=== PATIENT | male | born 1950 | race African-American/Black ===

== ENCOUNTER 2023-02-18 11:20 | Inpatient (IN) ==
[2023-02-18 11:44] VITALS: BMI 28.1
--- NOTE | 2023-02-18 11:58 | DR.GENAD ---
HPI Time Seen Time Seen by Provider: 02/18/23 11:56 PCP Primary Care Physician: KAREN Complaint/Symptoms Chief Complaint:: Patient states he has been dealing with a inguinal hernia for 1 year with hx of previous surgery in 1993. Patient states this AM at 0430 the pain became very severe. He states he vomited at 0700 hrs. He received Toradol 60 mg IM @ 1015 COVID-19 Coronavirus risk:travel/contact w/high risk person: No Has patient experienced Coronavirus symptoms: No Source History Provided: Patient Mode of Arrival Mode of Arrival: Wheelchair Timing Onset of Chief Complaint: 02/18/23 PMH PMH Past Medical History: Yes Past Medical History: Dyslipidemia, GERD and Hypertension Past Surgical History: Yes Past Surgical History Comment: hernia repair Family History History of Family Medical Conditions: No Social History Does patient currently use any type of tobacco product: No Have you used tobacco products in the last 12 months: No Type of Tobacco Use: None Does any household member use tobacco: No Alcohol Use: None Do you use any recreational Drugs:: No Lives With: Other Lives Where: Alf Travel Risk Coronavirus risk:travel/contact w/high risk person: No Has patient experienced Coronavirus symptoms: No Infectious screening In the last 2 months have you had wt loss of >10#?: NO Have you had fever, night sweats or hemotysis?: No Have you traveled outside the country in the last 6 months?: No Isolation: Standard PE Vital Signs Vitals: Vital Signs Temperature 98 F Pulse Rate 83 Respiratory Rate 20 Blood Pressure 174/85 O2 Sat by Pulse Oximetry 98 Opioid Opioid Risk Tool Age (Samy box if 16-45): No History of Preadolescent Sexual Abuse: No Total: 0 Total Score Risk Category: Low Risk Copyright: Faraz LAMB predicting aberrant behaviors Discharge Plan Discharge Plan Patient Disposition: 01 HOME, SELF-CARE Condition: Stable Health Concerns: Post Hospitalization: new medications and changes needed to prevent readmission or further decline. Pt educated and given instructions on all concerns. Plan of Treatment: Continue with present treatment and follow up plan. Pt is to keep follow up appointment as instructed and take medications as ordered. Follow ups/Referrals Follow ups/Referrals: NFD,None [Primary Care Provider] - 3 days Instructions Stand Alone Forms: Post Hospital Follow Up Care
[2023-02-18] MEDS ORDERED: NS 1,000 ML IV 1,000 ML ONE (12:13)
[2023-02-18] MEDS ORDERED: DILAUDID INJ ONE ×2 (12:19→12:41)
--- NOTE | 2023-02-18 12:21 | EKG ---
Test Reason : PRE OP Blood Pressure : */* mmHG Vent. Rate : 79 BPM Atrial Rate : 79 BPM P-R Int : 160 ms QRS Dur : 84 ms QT Int : 356 ms P-R-T Axes : 65 4 28 degrees QTc Int : 408 ms Normal sinus rhythm Nonspecific T wave abnormality Abnormal ECG No previous ECGs available Confirmed by John Sher ([id number]) on 02/20/2023 7:38:54 AM Referred By: Confirmed By: John Sher
[2023-02-18] MEDS ORDERED: DILAUDID INJ IM ONE (12:26)
[2023-02-18 12:27] LABS: BILIRUBIN,URINE NEGATIVE (NEGATIVE); BLOOD/HEMOGLOBIN,URINE NEGATIVE (NEGATIVE); GLUCOSE, URINE NEGATIVE (NEGATIVE); KETONES,URINE NEGATIVE (NEGATIVE); LEUKOCYTE ESTERASE ,URINE NEGATIVE (NEGATIVE); NITRITES,URINE NEGATIVE (NEGATIVE); PROTEIN,URINE NEGATIVE (NEGATIVE); UROBILINOGEN,URINE NORMAL (NORMAL)
[2023-02-18 12:29] LABS: APPEARANCE,URINE CLEAR (CLEAR); COLOR,URINE STRAW (YELLOW)
[2023-02-18] MEDS ORDERED: DILAUDID INJ IVP ONE ×2 (12:32→12:42)
[2023-02-18 12:34] LABS: BASOPHILS % (AUTO) 0.3 % (0.2-1.0); EOSINOPHILS % (AUTO) 0.1 % (0.9-2.9); HEMATOCRIT 42.4 % (42.0-54.0); HEMOGLOBIN 14.2 g/dL (13.5-18.0); LYMPHOCYTES # (AUTO) 0.8 X10^3/uL (1.3-2.9); LYMPHOCYTES % (AUTO) 7.3 % (21.0-51.0); MEAN CORPUSCULAR HEMOGLOBIN 28.7 pg (27.0-34.0); MEAN CORPUSCULAR HGB CONC 33.4 g/dL (33.0-35.0); MEAN CORPUSCULAR VOLUME 85.8 fL (80.0-100.0); MEAN PLATELET VOLUME 8.4 fL (7.4-11.0); MONOCYTES # (AUTO) 0.3 x10^3/uL (0.3-0.8); MONOCYTES % (AUTO) 2.5 % (0.0-13.0); NEUTROPHILS # (AUTO) 10.4 x10^3/uL (2.2-4.8); NEUTROPHILS % (AUTO) 89.8 % (42.0-75.0); PLATELET COUNT 310 X10^3/uL (150.0-450.0); RED BLOOD COUNT 4.94 X10^6/uL (4.7-6.0); RED CELL DISTRIBUTION WIDTH 14.6 % (11.6-16.5); WHITE BLOOD COUNT 11.6 X10^3/uL (3.6-10.0)
--- NOTE | 2023-02-18 12:37 | RAD ---
EXAM:CHEST, 1 VIEWHISTORY:Patient states he has been dealing with a inguinal hernia for 1 year with hx of previous surgery in 1993. Patient states this AM at 0430 the pain became very severe. He states he vomited at 0700 hrs.; Pre OPCOMPARISON:None.FINDINGS:SUPPORT DEVICES: None.HEART/MEDIASTINUM: No significant abnormality.LUNGS: No significant pulmonary abnormality. No significant pleural effusion. No pneumothorax.ADDITIONAL FINDINGS: None.IMPRESSION:No significant abnormality.THIS IS AN ELECTRONICALLY VERIFIED FINAL [id number]/2023 12:33 PM - Electronically signed by Ran Hi MD
[2023-02-18 12:44] LABS: ALANINE AMINOTRANSFERASE 27 Units/L (12-78); ALBUMIN 3.9 g/dL (3.4-5.0); ALKALINE PHOSPHATASE 103 Units/L (46-116); ASPARTATE AMINO TRANSFERASE 20 Units/L (15-37); BLOOD UREA NITROGEN 10 mg/dL (7-18); CALCIUM 8.8 mg/dL (8.5-10.1); CARBON DIOXIDE 29.1 mmol/L (21-32); CHLORIDE 101 mmol/L (98-107); COR NA(FOR HYPERGLY) 136 mmol/L (136-145); CREATININE 0.98 mg/dL (0.70-1.30); GLUCOSE 111 mg/dL (65-99); POTASSIUM 4.6 mmol/L (3.5-5.1); SODIUM 136 mmol/L (136-145); eGFR NON BLACK RACES > 60 (>60)
[2023-02-18] MEDS ORDERED: NS 1,000 ML IV 1,000 ML IV SCH (13:00)
[2023-02-18] MEDS ORDERED: APRESOLINE INJ 20 MG VIAL ONE (13:03)
[2023-02-18] MEDS ORDERED: APRESOLINE INJ 20 MG VIAL IVP ONE (13:07)
[2023-02-18] MEDS ORDERED: ANCEF VIAL 1 GRAM ONE (13:38)
[2023-02-18] MEDS ORDERED: NS 100 ML IV 100 ML ONE (13:39)
[2023-02-18] MEDS ORDERED: LR 1,000 ML IV 1,000 ML IV ONE (13:39)
--- NOTE | 2023-02-18 13:48 | DR.H&P ---
H&P History & Physical for Day of: H&P Date: 02/18/23 Chief Complaint Chief Complaint: Incarcerated left inguinal hernia Allergies Allergies Allergy/AdvReac Type Severity Reaction Status Date / Time Penicillins Allergy Mild Verified 02/18/23 13:34 History of Present Illness History of Present Illness: 72 yo male s/p laparoscopic left inguinal hernia repair 1993 with mesh. Now with recurrence over the last several years . It has been reduceable before today. Past Medical History Past Medical History: Dyslipidemia, GERD and Hypertension Past Surgical History Surgical History: Other (laparoscopic left inguinal hernia repair 1993 ) Social History Does patient currently use any type of tobacco product: No Have you used tobacco products in the last 12 months: No Type of Tobacco Use: None Does any household member use tobacco: No Alcohol Use: None Medications Home Medications: amlodipine, anti cholesterol medication Labs 02/18/23 12:12 02/18/23 12:12 Labs: Laboratory WBC 11.6 X10^3/uL (3.6-10.0) H 02/18/23 12:12 RBC 4.94 X10^6/uL (4.7-6.0) 02/18/23 12:12 Hgb 14.2 g/dL (13.5-18.0) 02/18/23 12:12 Hct 42.4 % (42.0-54.0) 02/18/23 12:12 MCV 85.8 fL (80.0-100.0) 02/18/23 12:12 MCH 28.7 pg (27.0-34.0) 02/18/23 12:12 MCHC 33.4 g/dL (33.0-35.0) 02/18/23 12:12 RDW 14.6 % (11.6-16.5) 02/18/23 12:12 Plt Count 310 X10^3/uL (150.0-450.0) 02/18/23 12:12 MPV 8.4 fL (7.4-11.0) 02/18/23 12:12 Neut % (Auto) 89.8 % (42.0-75.0) H 02/18/23 12:12 Lymph % (Auto) 7.3 % (21.0-51.0) L 02/18/23 12:12 [place] % (Auto) 2.5 % (0.0-13.0) 02/18/23 12:12 Eos % (Auto) 0.1 % (0.9-2.9) L 02/18/23 12:12 Baso % (Auto) 0.3 % (0.2-1.0) 02/18/23 12:12 Neut # (Auto) 10.4 x10^3/uL (2.2-4.8) H 02/18/23 12:12 Lymph # (Auto) 0.8 X10^3/uL (1.3-2.9) L 02/18/23 12:12 [place] # (Auto) 0.3 x10^3/uL (0.3-0.8) 02/18/23 12:12 Eos # (Auto) 0.0 x10^3/uL (0.0-0.2) 02/18/23 12:12 Baso # (Auto) 0.0 X10^3/uL (0.0-0.1) 02/18/23 12:12 Absolute Nucleated RBC 0.0 /100WBC 02/18/23 12:12 Sodium 136 mmol/L (136-145) 02/18/23 12:12 Corrected Sodium 136 mmol/L (136-145) 02/18/23 12:12 Potassium 4.6 mmol/L (3.5-5.1) 02/18/23 12:12 Chloride 101 mmol/L (98-107) 02/18/23 12:12 Carbon Dioxide 29.1 mmol/L (21-32) 02/18/23 12:12 BUN 10 mg/dL (7-18) 02/18/23 12:12 Creatinine 0.98 mg/dL (0.70-1.30) 02/18/23 12:12 Est GFR (MDRD) Af Amer > 60 (>60) 02/18/23 12:12 Est GFR (MDRD) Non-Af > 60 (>60) 02/18/23 12:12 Glucose 111 mg/dL (65-99) H 02/18/23 12:12 Calcium 8.8 mg/dL (8.5-10.1) 02/18/23 12:12 Corrected Calcium TNP 02/18/23 12:12 Total Bilirubin 0.40 mg/dL (0.2-1.0) 02/18/23 12:12 AST 20 Units/L (15-37) 02/18/23 12:12 ALT 27 Units/L (12-78) 02/18/23 12:12 Alkaline Phosphatase 103 Units/L (46-116) 02/18/23 12:12 Total Protein 8.0 g/dL (6.4-8.2) 02/18/23 12:12 Albumin 3.9 g/dL (3.4-5.0) 02/18/23 12:12 Globulin 4.1 g/dL (2.5-4.5) 02/18/23 12:12 Albumin/Globulin Ratio 1.0 Ratio (1.1-2.1) L 02/18/23 12:12 Specimen Type Clean catch urine 02/18/23 12:12 Urine Color Straw (YELLOW) 02/18/23 12:12 Urine Appearance Clear (CLEAR) 02/18/23 12:12 Urine pH 8.0 (5.0 - 8.0) 02/18/23 12:12 Ur Specific [place] 1.015 (1.000-1.030) 02/18/23 12:12 Urine Protein Negative (NEGATIVE) 02/18/23 12:12 Urine Glucose (UA) Negative (NEGATIVE) 02/18/23 12:12 Urine Ketones Negative (NEGATIVE) 02/18/23 12:12 Urine Blood Negative (NEGATIVE) 02/18/23 12:12 Urine Nitrite Negative (NEGATIVE) 02/18/23 12:12 Urine Bilirubin Negative (NEGATIVE) 02/18/23 12:12 Urine Urobilinogen Normal (NORMAL) 02/18/23 12:12 Ur Leukocyte Esterase Negative (NEGATIVE) 02/18/23 12:12 Review of Systems Constitutional: See HPI Eyes: No Symptoms Reported ENT: No Symptoms Reported Respiratory: No Symptoms Reported Cardiovascular: No Symptoms Reported Gastrointestinal: No Symptoms Reported Genitourinary: See HPI Musculoskeletal: No Symptoms Reported Skin: No Symptoms Reported Neurological: No Symptoms Reported Physical Exam Vital Signs: Vital Signs Temperature 98 F Pulse Rate 83 Respiratory Rate 20 Respiratory Rate 20 Respiratory Rate 20 Blood Pressure 174/85 O2 Sat by Pulse Oximetry 98 Oriented: Normal, Time, Person and Place Eyes: Normal Ear: Normal Nose: Normal Throat: Normal Respiratory: Clear Throughout Cardiovascular: Normal : Normal Auscultation: Bowel Sounds: Normal Palpation: Other (Large incarcerated inguinal hernia left groin) Tenderness: Normal Skin: Normal Musculoskeletal: Normal Psychiatric: Normal Mood Description: Calm Affect: Normal Speech Pattern: Clear Assessment/Plan (1) Incarcerated left inguinal hernia: Status: Acute Plan: open repair left inguinal hernia today. Risks and benefits discussed including bleeding, infection and possible loss of left testicle. he understands and agrees to proceed. Review H&P Reviewed: Yes Patient was examined?: Yes
[2023-02-18] MEDS ORDERED: SUPRANE ONE (14:30)
[2023-02-18] MEDS ORDERED: VERSED ONE (14:31)
[2023-02-18] MEDS ORDERED: FENTANYL VIAL INJ 250 mcg ONE (14:31)
[2023-02-18] MEDS ORDERED: BRIDION ONE (14:33)
[2023-02-18] MEDS ORDERED: DIPRIVAN VIAL 20 ML ONE (14:33)
[2023-02-18] MEDS ORDERED: QUELICIN (OR ANECTINE) ONE (14:58)
[2023-02-18] MEDS ORDERED: ZOFRAN INJ 4 MG VIAL ONE (14:58)
[2023-02-18] MEDS ORDERED: ZEMURON 100 MG VIAL ONE (14:58)
[2023-02-18] MEDS ORDERED: MARCAINE/EPINEPHRINE ONE (15:26)
--- NOTE | 2023-02-18 15:48 | OR.IMMED ---
IMMEDIATE POST-OP NOTE Immediate Post-Op Note Pre-Op Diagnosis: incarcerated left inguinal hernia Post-Op Diagnosis: strangulated left inguinal hernia with ischemic sigmoid colon. It pinked up after release of the mesenteric compromise Procedure: repair left strangulated inguinal hernia Description of Procedure: see dictation Surgeon/Table Runner: Clyde Findings: as above Estimated Blood Loss: < 50 cc Complications: none Progress Notes: to floor, clear liquid diet, careful observation
[2023-02-18] MEDS ORDERED: REGLAN INJ 10 MG VIAL IVP PRN (16:00)
[2023-02-18] MEDS ORDERED: DILAUDID INJ IVP PRN (16:00)
[2023-02-18] MEDS ORDERED: BENADRYL INJ 50 MG VIAL IVP PRN (16:00)
[2023-02-18] MEDS ORDERED: BARHEMSYS INJ IVP PRN (16:00)
[2023-02-18] MEDS ORDERED: ZOFRAN INJ 4 MG VIAL IVP PRN (16:00)
[2023-02-18] MEDS: LR 1,000 ML IV 1,000 ML IV SCH (19:20)
[2023-02-18] MEDS: PERCOCET TAB 5/325 MG PO PRN ×2 (19:28→23:50)
[2023-02-19] MEDS: LR 1,000 ML IV 1,000 ML IV SCH ×4 (02:47→20:19)
[2023-02-19] MEDS: PERCOCET TAB 5/325 MG PO PRN ×5 (04:47→21:12)
[2023-02-19 05:28] LABS: BASOPHILS # (AUTO) 0.1 X10^3/uL (0.0-0.1); BASOPHILS % (AUTO) 0.5 % (0.2-1.0); EOSINOPHILS % (AUTO) 0.1 % (0.9-2.9); HEMATOCRIT 35.8 % (42.0-54.0); LYMPHOCYTES # (AUTO) 1.6 X10^3/uL (1.3-2.9); LYMPHOCYTES % (AUTO) 13.4 % (21.0-51.0); MEAN CORPUSCULAR HEMOGLOBIN 28.9 pg (27.0-34.0); MEAN CORPUSCULAR HGB CONC 33.8 g/dL (33.0-35.0); MEAN CORPUSCULAR VOLUME 85.5 fL (80.0-100.0); MEAN PLATELET VOLUME 9.4 fL (7.4-11.0); MONOCYTES # (AUTO) 1.7 x10^3/uL (0.3-0.8); MONOCYTES % (AUTO) 14.2 % (0.0-13.0); NEUTROPHILS # (AUTO) 8.6 x10^3/uL (2.2-4.8); NEUTROPHILS % (AUTO) 71.8 % (42.0-75.0); PLATELET COUNT 233 X10^3/uL (150.0-450.0); RED BLOOD COUNT 4.19 X10^6/uL (4.7-6.0); RED CELL DISTRIBUTION WIDTH 14.1 % (11.6-16.5)
[2023-02-19 05:37] LABS: HEMOGLOBIN 12.1 g/dL (13.5-18.0)
[2023-02-19] MEDS: NORVASC TAB 10 MG PO SCH (09:09)
[2023-02-19] MEDS: LOVENOX INJ 40 MG SYR SC SCH (09:13)
--- NOTE | 2023-02-19 16:37 | NOTE.SOAP ---
Soap Note Note for Day of Date of Exam: 02/19/23 Subjective Data Subjective Data: POD # 1 after repair of strangulated left inguinal hernia with ischemic compromise of sigmoid colon. Doing well. Passing flatus . Advanced fro clear liquid diet to regular diet. Objective Data Temperature: 98 F Pulse Rate: 105 Respiratory Rate: 20 Blood Pressure: 144/98 O2 Sat by Pulse Oximetry: 98 Objective Data: No significant edema of the left groin above what is expected. Bloody drainage for this area in the LIBORIO drain . A total of 180 cc out LIBORIO drain. Hgb 12.1, WBC= 12.0, Abdomen mildly distended Assessment Assessment: S/P repair of strangulated left inguinal hernia Plan Plan: Continue to observe abdomen. Continue diet. Labs in AM.Heparin lock IVFS
[2023-02-20] MEDS: PERCOCET TAB 5/325 MG PO PRN ×6 (00:55→22:25)
[2023-02-20 05:23] LABS: BASOPHILS # (AUTO) 0.1 X10^3/uL (0.0-0.1); BASOPHILS % (AUTO) 1.1 % (0.2-1.0); EOSINOPHILS # (AUTO) 0.1 x10^3/uL (0.0-0.2); EOSINOPHILS % (AUTO) 1.3 % (0.9-2.9); HEMATOCRIT 32.2 % (42.0-54.0); LYMPHOCYTES # (AUTO) 1.4 X10^3/uL (1.3-2.9); LYMPHOCYTES % (AUTO) 13.2 % (21.0-51.0); MEAN CORPUSCULAR HEMOGLOBIN 29.3 pg (27.0-34.0); MEAN CORPUSCULAR HGB CONC 34.2 g/dL (33.0-35.0); MEAN CORPUSCULAR VOLUME 85.8 fL (80.0-100.0); MEAN PLATELET VOLUME 8.6 fL (7.4-11.0); MONOCYTES # (AUTO) 1.9 x10^3/uL (0.3-0.8); MONOCYTES % (AUTO) 17.8 % (0.0-13.0); NEUTROPHILS # (AUTO) 6.9 x10^3/uL (2.2-4.8); NEUTROPHILS % (AUTO) 66.6 % (42.0-75.0); PLATELET COUNT 238 X10^3/uL (150.0-450.0); RED BLOOD COUNT 3.75 X10^6/uL (4.7-6.0); RED CELL DISTRIBUTION WIDTH 13.8 % (11.6-16.5); WHITE BLOOD COUNT 10.4 X10^3/uL (3.6-10.0)
[2023-02-20] MEDS: NORVASC TAB 10 MG PO SCH (08:38)
[2023-02-20] MEDS: LOVENOX INJ 40 MG SYR SC SCH (08:39)
[2023-02-20] MEDS ORDERED: CITROMA PO ONE (11:29)
--- NOTE | 2023-02-20 19:03 | DR.OPNOTE ---
OP NOTE Pre-Op Diagnosis: Incarcerated left inguinal hernia Post-Op Diagnosis: Stangulated left inguinal hernia( sigmoid colon ischemic and did pink up) Procedure Date Date Of Procedure: 02/18/23 Procedure: PROCEDURE: OPEN REPAIR STRANULATED LEFT INGUINAL HERNIA ,HIGH LIGATION OF SAC AND MESH REPAIR. NARRATIVE: The patient was taken to the operative suite and placed in the supine position. The entire abdomen and entire scrotum were prepped and draped in sterile fashion. Time out for the procedure obtained. Standard left inguinal incision was made with a 15 knife blade extending through the subcutaneous tissue with electrocautery. The external oblique fascia opened along it's orientation dividing the external inguinal ring. Hernia had been attempted to be reduced preoperatively but was unsuccessful. The hernia sac was opened with a 15 knife blade and sigmoid colon removed from the sac. We watched the sigmoid colon for several minutes and it pinked up. The colon was then placed back through the indirect hernia defect into the abdominal cavity. The very large sac was the dissected free from the cord structures. The sack was excised using electrocautery. This was a chronic thick-walled sac. The base of the sac was then closed with two running layers of 2-0 silk suture. The testicle placed back in the scrotum. At this point Prolene mesh was placed in the inguinal canal above the sac repair. The mesh was sutured to the pubic tubercle , medially to the transversalis fascia and laterally to the shelving edge of the inguinal ligament . The mesh was divided posteriorly creating two tails which were placed around the cord structures and sutured to itself. The tails of the mesh placed underneath the external oblique fascia. The area was irrigated and suctioned free. A flat number 10 Rowdy Hahn drain was placed over the mesh and brought out through a 5 mm incision in the left scrotum to drain this area. The external oblique fascia was closed with running 3-0 Vicryl suture. The subcutaneous tissue closed with running 3-0 Vicryl suture and the skin closed with running 4-0 Vicryl subcuticular suture. Steri-strips applied to close the skin and the patient tolerated this very well. He was extubated and taken to PACU in good condition. Type of Anesthesia: General Anesthetic w/ETT Findings: as above Type of Fluids Used:: Lactated Ringers EBL: < 100 cc Complications:: one Needle/Sponge Count:: correct Disposition/Condition: Pt. tolerated procedure without difficulty. Extubated in the OR and taken to PACU in stable condition.
--- NOTE | 2023-02-20 19:55 | NOTE.SOAP ---
Soap Note Note for Day of Date of Exam: 02/20/23 Subjective Data Subjective Data: POD # 2 after repair of stangulated left inguinal hernia repair . Doing well. Taking diet. Passing flatus . Objective Data Temperature: 99.7 F Pulse Rate: 98 Respiratory Rate: 20 Blood Pressure: 126/65 O2 Sat by Pulse Oximetry: 93 Objective Data: Hgb=11.0. Scotum edematous but is markedly less swollen. No evidence recurrent hernia. Drain with 85 cc last two shifts. Less bloody. Assessment Assessment: POD # 2 after repair of strangulated left inguinal hernia with ischemic sigmoid colon. Overall improving. Plan Plan: Heparin lock IVFs . Magnesium citrate. Probably dischrarge tomorrow
[2023-02-20] MEDS ORDERED: HIBICLENS WASH ONE (20:51)
[2023-02-21] MEDS: PERCOCET TAB 5/325 MG PO PRN ×3 (02:17→10:19)
[2023-02-21 06:24] VITALS: RESP 18
[2023-02-21 06:59] LABS: BASOPHILS # (AUTO) 0.1 X10^3/uL (0.0-0.1); BASOPHILS % (AUTO) 0.6 % (0.2-1.0); EOSINOPHILS # (AUTO) 0.2 x10^3/uL (0.0-0.2); EOSINOPHILS % (AUTO) 1.4 % (0.9-2.9); HEMATOCRIT 29.8 % (42.0-54.0); HEMOGLOBIN 10.2 g/dL (13.5-18.0); LYMPHOCYTES # (AUTO) 1.3 X10^3/uL (1.3-2.9); LYMPHOCYTES % (AUTO) 11.7 % (21.0-51.0); MEAN CORPUSCULAR HEMOGLOBIN 29.8 pg (27.0-34.0); MEAN CORPUSCULAR HGB CONC 34.3 g/dL (33.0-35.0); MEAN CORPUSCULAR VOLUME 86.7 fL (80.0-100.0); MEAN PLATELET VOLUME 8.9 fL (7.4-11.0); MONOCYTES # (AUTO) 1.2 x10^3/uL (0.3-0.8); MONOCYTES % (AUTO) 10.9 % (0.0-13.0); NEUTROPHILS # (AUTO) 8.2 x10^3/uL (2.2-4.8); NEUTROPHILS % (AUTO) 75.4 % (42.0-75.0); PLATELET COUNT 219 X10^3/uL (150.0-450.0); RED BLOOD COUNT 3.44 X10^6/uL (4.7-6.0); RED CELL DISTRIBUTION WIDTH 14.2 % (11.6-16.5); WHITE BLOOD COUNT 10.9 X10^3/uL (3.6-10.0)
[2023-02-21 07:11] LABS: ALANINE AMINOTRANSFERASE 16 Units/L (12-78); ALBUMIN 2.6 g/dL (3.4-5.0); ALKALINE PHOSPHATASE 69 Units/L (46-116); ASPARTATE AMINO TRANSFERASE 18 Units/L (15-37); BLOOD UREA NITROGEN 18 mg/dL (7-18); CALCIUM 8.2 mg/dL (8.5-10.1); CARBON DIOXIDE 28.7 mmol/L (21-32); CHLORIDE 104 mmol/L (98-107); COR CA(FOR HYPOALB) 9.3 mg/dL (8.5-10.1); COR NA(FOR HYPERGLY) 140 mmol/L (136-145); GLUCOSE 152 mg/dL (65-99); POTASSIUM 3.8 mmol/L (3.5-5.1); SODIUM 139 mmol/L (136-145); TOTAL PROTEIN 6.5 g/dL (6.4-8.2); eGFR NON BLACK RACES > 60 (>60)
[2023-02-21] MEDS: LOVENOX INJ 40 MG SYR SC SCH (08:46)
[2023-02-21] MEDS: NORVASC TAB 10 MG PO SCH (08:47)
[2023-02-21 09:09] VITALS: BP 145/70; PULSE 88; TEMP 97.9; O2SAT 95
--- NOTE | 2023-02-21 11:17 | W.DIS.FURT ---
Summary of Discharge Discharge Summary of Date Date of Exam: 02/21/23 Admission Date Date of Admission: 02/18/23 Admission Diagnosis Hospital Course: This 72 year old male is currently incarcerated in the [place] [facility]. He has had a history of left inguinal hernia repair performed in the past via laparoscopy.. He has a several year history of significant swelling in the left groin and left scrotum. He presented to the emergency room where he was diagnosed with an incarcerated left inguinal hernia. It could not be reduced by the ER physician or myself . He was taken to the operating suite later that day where he underwent repair of this hernia. He proved to have strangulated sigmoid colon in the hernia which was observed and did well. It was placed back in the abdominal cavity. Mesh was placed . Post procedure he has done well. He is now tolerating a diet and has had a bowel movement. He has a drain in the scrotum with significant edema and swelling as expected but no evidence of recurrence. He will be discharged to the [facility] at the [facility]. He will be on his usual medications plus Percocet 5 mg tablets one every six hours PRN pain. He will follow up with me in one week, at which time we will plan to remove the drain. Vital Signs: Vital Signs (72 hours) 02/19/23 16:34 02/20/23 19:51 02/18/23 11:22 Temperature 98 F 99.7 F H 98 F Pulse Rate 105 H 98 H 83 Pulse Rate [Bilateral Brachial] Respiratory Rate 20 20 20 Blood Pressure 144/98 126/65 174/85 Blood Pressure [Left Arm] O2 Sat by Pulse Oximetry 98 93 L 98 Oxygen Delivery Method Room Air 02/18/23 12:22 02/18/23 12:45 02/18/23 13:30 Temperature 97.9 F Pulse Rate 97 H Pulse Rate [Bilateral Brachial] Respiratory Rate 20 20 16 Blood Pressure 160/73 Blood Pressure [Left Arm] O2 Sat by Pulse Oximetry 96 Oxygen Delivery Method Room Air 02/18/23 15:57 02/18/23 16:02 02/18/23 16:07 Temperature 97.5 F L Pulse Rate 101 H 96 H 93 H Pulse Rate [Bilateral Brachial] Respiratory Rate 16 16 16 Blood Pressure 156/77 165/73 157/74 Blood Pressure [Left Arm] O2 Sat by Pulse Oximetry 98 98 99 Oxygen Delivery Method Aerosol Face Tent Aerosol Face Tent Aerosol Face Tent 02/18/23 16:12 02/18/23 16:17 02/18/23 16:22 Temperature Pulse Rate 103 H 96 H 103 H Pulse Rate [Bilateral Brachial] Respiratory Rate 16 18 18 Blood Pressure 147/70 137/67 139/68 Blood Pressure [Left Arm] O2 Sat by Pulse Oximetry 98 99 99 Oxygen Delivery Method Aerosol Face Tent Nasal Cannula Nasal Cannula 02/18/23 16:27 02/18/23 16:40 02/18/23 16:55 Temperature 98.3 F 97.7 F Pulse Rate 94 H Pulse Rate [Bilateral Brachial] 91 H 81 Respiratory Rate 18 18 18 Blood Pressure 141/71 Blood Pressure [Left Arm] 150/75 145/70 O2 Sat by Pulse Oximetry 97 95 92 L Oxygen Delivery Method Nasal Cannula Room Air Room Air 02/18/23 17:10 02/18/23 16:02 02/18/23 17:25 Temperature 97.7 F 97.4 F L Pulse Rate Pulse Rate [Bilateral Brachial] 86 84 Respiratory Rate 18 18 Blood Pressure Blood Pressure [Left Arm] 143/67 139/69 O2 Sat by Pulse Oximetry 95 99 Oxygen Delivery Method Room Air Room Air Room Air 02/18/23 17:40 02/18/23 19:28 02/18/23 19:00 Temperature 97.4 F L Pulse Rate Pulse Rate [Bilateral Brachial] 79 Respiratory Rate 18 17 Blood Pressure Blood Pressure [Left Arm] 157/72 O2 Sat by Pulse Oximetry 95 Oxygen Delivery Method Room Air Room Air 02/18/23 19:59 02/18/23 20:28 02/18/23 18:40 Temperature 98.3 F 97.7 F Pulse Rate Pulse Rate [Bilateral Brachial] 83 83 Respiratory Rate 20 19 17 Blood Pressure Blood Pressure [Left Arm] 152/76 150/72 O2 Sat by Pulse Oximetry 95 97 Oxygen Delivery Method Room Air Room Air 02/18/23 19:40 02/18/23 20:40 02/18/23 21:40 Temperature 98.3 F 98.1 F 98.5 F Pulse Rate Pulse Rate [Bilateral Brachial] 83 87 81 Respiratory Rate 20 19 18 Blood Pressure Blood Pressure [Left Arm] 152/76 136/66 164/79 O2 Sat by Pulse Oximetry 95 95 99 Oxygen Delivery Method Room Air Room Air Room Air 02/18/23 23:40 02/18/23 23:50 02/19/23 00:50 Temperature 98.7 F Pulse Rate Pulse Rate [Bilateral Brachial] 79 Respiratory Rate 20 19 19 Blood Pressure Blood Pressure [Left Arm] 151/68 O2 Sat by Pulse Oximetry 97 Oxygen Delivery Method Room Air 02/19/23 04:00 02/19/23 04:47 02/19/23 05:47 Temperature 99.5 F Pulse Rate Pulse Rate [Bilateral Brachial] 84 Respiratory Rate 20 20 20 Blood Pressure Blood Pressure [Left Arm] 139/65 O2 Sat by Pulse Oximetry 94 L Oxygen Delivery Method Room Air 02/19/23 08:00 02/19/23 09:12 02/19/23 13:33 Temperature 98.5 F Pulse Rate Pulse Rate [Bilateral Brachial] 77 Respiratory Rate 18 18 18 Blood Pressure Blood Pressure [Left Arm] 156/72 O2 Sat by Pulse Oximetry 93 L Oxygen Delivery Method Room Air 02/19/23 07:00 02/19/23 10:12 02/19/23 12:00 Temperature 98.4 F Pulse Rate Pulse Rate [Bilateral Brachial] 82 Respiratory Rate 18 18 Blood Pressure Blood Pressure [Left Arm] 134/66 O2 Sat by Pulse Oximetry 92 L Oxygen Delivery Method Room Air Room Air 02/19/23 14:33 02/19/23 16:00 02/19/23 17:36 Temperature 98 F Pulse Rate Pulse Rate [Bilateral Brachial] 105 H Respiratory Rate 18 20 20 Blood Pressure Blood Pressure [Left Arm] 144/98 O2 Sat by Pulse Oximetry 98 Oxygen Delivery Method Room Air 02/19/23 18:36 02/19/23 19:00 02/19/23 20:00 Temperature 97.9 F Pulse Rate Pulse Rate [Bilateral Brachial] 106 H Respiratory Rate 20 20 Blood Pressure Blood Pressure [Left Arm] 177/79 O2 Sat by Pulse Oximetry 92 L Oxygen Delivery Method Room Air Room Air 02/19/23 21:12 02/19/23 22:12 02/20/23 00:00 Temperature 98.6 F Pulse Rate Pulse Rate [Bilateral Brachial] 96 H Respiratory Rate 20 18 20 Blood Pressure Blood Pressure [Left Arm] 157/74 O2 Sat by Pulse Oximetry 93 L Oxygen Delivery Method Room Air 02/20/23 00:55 02/20/23 01:55 02/20/23 04:00 Temperature 98 F Pulse Rate Pulse Rate [Bilateral Brachial] 88 Respiratory Rate 18 19 20 Blood Pressure Blood Pressure [Left Arm] 122/72 O2 Sat by Pulse Oximetry 94 L Oxygen Delivery Method Room Air 02/20/23 04:38 02/20/23 05:38 02/20/23 07:57 Temperature Pulse Rate Pulse Rate [Bilateral Brachial] Respiratory Rate 20 18 18 Blood Pressure Blood Pressure [Left Arm] O2 Sat by Pulse Oximetry Oxygen Delivery Method 02/20/23 07:00 02/20/23 08:00 02/20/23 08:57 Temperature 100.6 F H Pulse Rate Pulse Rate [Bilateral Brachial] 92 H Respiratory Rate 18 18 Blood Pressure Blood Pressure [Left Arm] 131/71 O2 Sat by Pulse Oximetry 91 L Oxygen Delivery Method Room Air Room Air 02/20/23 12:33 02/20/23 12:00 02/20/23 13:33 Temperature 98.9 F Pulse Rate Pulse Rate [Bilateral Brachial] 92 H Respiratory Rate 18 18 18 Blood Pressure Blood Pressure [Left Arm] 136/70 O2 Sat by Pulse Oximetry 94 L Oxygen Delivery Method Room Air 02/20/23 16:00 02/20/23 18:17 02/20/23 19:17 Temperature 99.7 F H Pulse Rate Pulse Rate [Bilateral Brachial] 98 H Respiratory Rate 20 18 18 Blood Pressure Blood Pressure [Left Arm] 126/65 O2 Sat by Pulse Oximetry 93 L Oxygen Delivery Method Room Air 02/20/23 19:00 02/20/23 20:00 02/20/23 22:25 Temperature 98.8 F Pulse Rate Pulse Rate [Bilateral Brachial] 100 H Respiratory Rate 18 20 Blood Pressure Blood Pressure [Left Arm] 119/63 O2 Sat by Pulse Oximetry 91 L Oxygen Delivery Method Room Air Room Air 02/20/23 23:25 02/21/23 00:00 02/21/23 02:17 Temperature 98.5 F Pulse Rate Pulse Rate [Bilateral Brachial] 104 H Respiratory Rate 20 20 20 Blood Pressure Blood Pressure [Left Arm] 133/72 O2 Sat by Pulse Oximetry 97 Oxygen Delivery Method Room Air 02/21/23 03:17 02/21/23 04:00 02/21/23 06:23 Temperature 98.6 F Pulse Rate Pulse Rate [Bilateral Brachial] 97 H Respiratory Rate 20 20 18 Blood Pressure Blood Pressure [Left Arm] 134/61 O2 Sat by Pulse Oximetry 90 L Oxygen Delivery Method Room Air 02/21/23 07:02/21/23 07:00 02/21/23 08:00 Temperature 97.9 F Pulse Rate Pulse Rate [Bilateral Brachial] 88 Respiratory Rate 18 18 Blood Pressure Blood Pressure [Left Arm] 145/70 O2 Sat by Pulse Oximetry 95 Oxygen Delivery Method Room Air Room Air 02/21/23 10:19 Temperature Pulse Rate Pulse Rate [Bilateral Brachial] Respiratory Rate 18 Blood Pressure Blood Pressure [Left Arm] O2 Sat by Pulse Oximetry Oxygen Delivery Method Labs: Laboratory Last Values WBC 10.9 X10^3/uL (3.6-10.0) H 02/21/23 06:16 RBC 3.44 X10^6/uL (4.7-6.0) L 02/21/23 06:16 Hgb 10.2 g/dL (13.5-18.0) L 02/21/23 06:16 Hct 29.8 % (42.0-54.0) L 02/21/23 06:16 MCV 86.7 fL (80.0-100.0) 02/21/23 06:16 MCH 29.8 pg (27.0-34.0) 02/21/23 06:16 MCHC 34.3 g/dL (33.0-35.0) 02/21/23 06:16 RDW 14.2 % (11.6-16.5) 02/21/23 06:16 Plt Count 219 X10^3/uL (150.0-450.0) 02/21/23 06:16 MPV 8.9 fL (7.4-11.0) 02/21/23 06:16 Neut % (Auto) 75.4 % (42.0-75.0) H 02/21/23 06:16 Lymph % (Auto) 11.7 % (21.0-51.0) L 02/21/23 06:16 Howard % (Auto) 10.9 % (0.0-13.0) 02/21/23 06:16 Eos % (Auto) 1.4 % (0.9-2.9) 02/21/23 06:16 Baso % (Auto) 0.6 % (0.2-1.0) 02/21/23 06:16 Neut # (Auto) 8.2 x10^3/uL (2.2-4.8) H 02/21/23 06:16 Lymph # (Auto) 1.3 X10^3/uL (1.3-2.9) 02/21/23 06:16 Howard # (Auto) 1.2 x10^3/uL (0.3-0.8) H 02/21/23 06:16 Eos # (Auto) 0.2 x10^3/uL (0.0-0.2) 02/21/23 06:16 Baso # (Auto) 0.1 X10^3/uL (0.0-0.1) 02/21/23 06:16 Absolute Nucleated RBC 0.1 /100WBC 02/21/23 06:16 Sodium 139 mmol/L (136-145) 02/21/23 06:16 Corrected Sodium 140 mmol/L (136-145) 02/21/23 06:16 Potassium 3.8 mmol/L (3.5-5.1) 02/21/23 06:16 Chloride 104 mmol/L (98-107) 02/21/23 06:16 Carbon Dioxide 28.7 mmol/L (21-32) 02/21/23 06:16 BUN 18 mg/dL (7-18) 02/21/23 06:16 Creatinine 1.10 mg/dL (0.70-1.30) 02/21/23 06:16 Est GFR (MDRD) Af Amer > 60 (>60) 02/21/23 06:16 Est GFR (MDRD) Non-Af > 60 (>60) 02/21/23 06:16 Glucose 152 mg/dL (65-99) H 02/21/23 06:16 Calcium 8.2 mg/dL (8.5-10.1) L 02/21/23 06:16 Corrected Calcium 9.3 mg/dL (8.5-10.1) 02/21/23 06:16 Total Bilirubin 0.40 mg/dL (0.2-1.0) 02/21/23 06:16 AST 18 Units/L (15-37) 02/21/23 06:16 ALT 16 Units/L (12-78) 02/21/23 06:16 Alkaline Phosphatase 69 Units/L (46-116) 02/21/23 06:16 Total Protein 6.5 g/dL (6.4-8.2) 02/21/23 06:16 Albumin 2.6 g/dL (3.4-5.0) L 02/21/23 06:16 Globulin 3.9 g/dL (2.5-4.5) 02/21/23 06:16 Albumin/Globulin Ratio 0.7 Ratio (1.1-2.1) L 02/21/23 06:16 Specimen Type Clean catch urine 02/18/23 12:12 Urine Color Straw (YELLOW) 02/18/23 12:12 Urine Appearance Clear (CLEAR) 02/18/23 12:12 Urine pH 8.0 (5.0 - 8.0) 02/18/23 12:12 Ur Specific Bernard 1.015 (1.000-1.030) 02/18/23 12:12 Urine Protein Negative (NEGATIVE) 02/18/23 12:12 Urine Glucose (UA) Negative (NEGATIVE) 02/18/23 12:12 Urine Ketones Negative (NEGATIVE) 02/18/23 12:12 Urine Blood Negative (NEGATIVE) 02/18/23 12:12 Urine Nitrite Negative (NEGATIVE) 02/18/23 12:12 Urine Bilirubin Negative (NEGATIVE) 02/18/23 12:12 Urine Urobilinogen Normal (NORMAL) 02/18/23 12:12 Ur Leukocyte Esterase Negative (NEGATIVE) 02/18/23 12:12 Reason For Visit: STRAGULATED LEFT INGUINAL HERNIA Discharge Date Discharge Date: 02/21/23 Discharge Diagnosis All Active Problems (Updated 02/18/23 @ 13:45 by Yomi Tang) Incarcerated left inguinal hernia (Acute) Plan of Treatment: Continue with present treatment and follow up plan. Pt is to keep follow up appointment as instructed and take medications as ordered. Discharge Medications Discharge Medications: Penicillins Allergy (Mild, Verified 02/18/23 13:34) CONTINUE taking the following medications amlodipine 5 mg tablet 5 mg PO DAILY 02/18/23 [History] atorvastatin 20 mg tablet 20 mg PO HS 02/18/23 [History] docusate sodium 50 mg capsule 100 mg PO BID 02/18/23 [History] New Prescriptions oxycodone-acetaminophen 5 mg-325 mg tablet (Percocet) 1 tab PO Q6H PRN #30 tabs 02/21/23 [Rx] Discharge Disposition Assessment: as per hospital course. Discharge Plan Discharge Plan Hospital Course: This 72 year old male is currently incarcerated in the [place] [facility]. He has had a history of left inguinal hernia repair performed in the past via laparoscopy.. He has a several year history of significant swelling in the left groin and left scrotum. He presented to the emergency room where he was diagnosed with an incarcerated left inguinal hernia. It could not be reduced by the ER physician or myself . He was taken to the operating suite later that day where he underwent repair of this hernia. He proved to have strangulated sigmoid colon in the hernia which was observed and did well. It was placed back in the abdominal cavity. Mesh was placed . Post procedure he has done well. He is now tolerating a diet and has had a bowel movement. He has a drain in the scrotum with significant edema and swelling as expected but no evidence of recurrence. He will be discharged to the [facility] at the [facility]. He will be on his usual medications plus Percocet 5 mg tablets one every six hours PRN pain. He will follow up with me in one week, at which time we will plan to remove the drain. Patient Disposition: D/C with law/court enforcement Condition: Stable Health Concerns: Post Hospitalization: new medications and changes needed to prevent readmission or further decline. Pt educated and given instructions on all concerns. Care Plan Goals: Problem: Pain/Alteration in Comfort Goal: Improve/ Resolve Pain; Achieve Pain Tolerance Instructions: Take pain medications as prescribed. Contact your primary care provider if your pain is unrelieved or worsens. Follow up with primary care provider as directed. Plan of Treatment: Continue with present treatment and follow up plan. Pt is to keep follow up appointment as instructed and take medications as ordered. Assessment: as per hospital course. Prescription drug monitoring program results: PDMP was not reviewed Prescriptions: New oxycodone-acetaminophen [Percocet] 5-325 mg Tablet 1 tab PO Q6H MDD 4 PRNQty: 30 0RF No Action atorvastatin 20 mg Tablet 20 mg PO HS Colace 50 mg Capsule 100 mg PO BID amlodipine 5 mg Tablet 5 mg PO DAILY Follow ups/Referrals Follow ups/Referrals: Yomi Tang [STAFF PHYSICIAN] - 02/28/23 1:00 pm Instructions Instructions: Inguinal Hernia, Adult, [id number], General Anesthesia, Adult, Care After, Hernia, Adult, [id number], Open Hernia Repair, Adult, Care After, [id number] Stand Alone Forms: Excuse From Work or School, Post Hospital Follow Up Care
[2023-02-21] MEDS ORDERED: PERCOCET TAB 5/325 MG PO ONE (11:36)
== END 2023-02-21 12:16 | DRG 352 ==
LOC: ER 11:20 → MED/SURG 15:48
PROVIDERS: ADMIT Surgery; ATTEND Surgery
DX: K21.9 Gastro-esophageal reflux disease without esophagitis; E78.2 Mixed hyperlipidemia; I10 Essential (primary) hypertension; K40.31 Unilateral inguinal hernia, with obstruction, without gangrene, recurrent